=== PATIENT | female | born 1970 | race African-American/Black ===

== ENCOUNTER 2017-03-18 11:36 | Emergency (ER) | payer MEDICAID ==
[~2017-03-18] VITALS: Ht 162.6 cm; Wt 63.0 kg
[~2017-03-18 11:36] MED LIST: ALBU2.5V13 IH; ASPI-1159 PO
[2017-03-18] MEDS ORDERED: SODIUM CHLORIDE 0.9% 1,000 ML IV ONE (15:52)
[2017-03-18] MEDS ORDERED: KETOROLAC 30MG/ML VIAL IV STA (15:52)
[2017-03-18 16:17] VITALS: BP 121/74
[2017-03-18 16:17] LABS: CHLORIDE 110 mEq/L (98-107); EOSINOPHILS % 6.1 % (0.0-5.0); HEMATOCRIT. 33.7 % (36.0-48.0); HEMOGLOBIN. 11.1 g/dL (12.0-16.0); LYMPHOCYTES % 34.3 % (20.0-50.0); MEAN CORPUSCULAR VOLUME 90.9 fL (81.0-99.0); MEAN PLATELET VOLUME 8.1 fl (7.4-10.4); MONOCYTES % 10.2 % (2.0-8.0); NEUTROPHILS % 48.4 % (40.0-76.0); PLATELET 298 x1000/uL (130-400); RED BLOOD CELL COUNT 3.71 mill/uL (4.2-5.4); RED CELL DISTRIBUTION WIDTH 16.6 % (11.6-14.6)
[2017-03-18 16:29] LABS: INR 1.1; PROTHROMBIN TIME 11.1 sec (9.4-11.6)
[2017-03-18 16:30] LABS: HCG SCREEN NEGATIVE
[2017-03-18 17:19] LABS: CLARITY URINE CLOUDY (CLEAR); COLOR URINE YELLOW (YELLOW); KETONES URINE NEGATIVE (NEGATIVE); LEUKOCYTE ESTERASE URINE 2+ (NEGATIVE); NITRITE URINE NEGATIVE (NEGATIVE); OCCULT BLOOD URINE NEGATIVE (NEGATIVE); PH URINE 5.5 (4.5-8.0); PROTEIN URINE NEGATIVE (NEGATIVE); SPECIFIC GRAVITY URINE 1.024 (1.005-1.030); UROBILINOGEN URINE 0.2 E.U./dL (0.2-1.0)
== END 2017-03-18 19:20 | disposition home or self-care (01) ==
LOC: ER 12:17
DX: N20.0 Calculus of kidney (principal); N39.0 Urinary tract infection, site not specified; F12.10 Cannabis abuse, uncomplicated; Z79.82 Long term (current) use of aspirin; Z87.442 Personal history of urinary calculi; Z98.51 Tubal ligation status; Z91.041 Radiographic dye allergy status
CPT/HCPCS: 36415; 74176; 80053; 81001; 83690; 84703; 85025; 85610; 96361; 96374; 99285; J1885; J7030

== ENCOUNTER 2017-03-28 18:19 | Emergency (ER) | payer MEDICAID ==
[~2017-03-28] VITALS: Ht 162.6 cm; Wt 63.0 kg
[2017-03-28] MEDS ORDERED: FLUORESCEIN SODIUM 1MG/STRIP RIGHTEYE ONE (20:00)
[2017-03-28] MEDS ORDERED: TETRACAINE 0.5% OPHTH DROPS 4ML RIGHTEYE ONE (20:00)
[2017-03-28] MEDS ORDERED: IBUPROFEN 600MG TABLET PO ONE (20:30)
[2017-03-28 20:32] VITALS: BP 135/76
== END 2017-03-28 20:48 | disposition home or self-care (01) ==
LOC: ER 18:58
DX: H11.31 Conjunctival hemorrhage, right eye (principal); Z87.442 Personal history of urinary calculi; Z85.9 Personal history of malignant neoplasm, unspecified; Z79.82 Long term (current) use of aspirin; Z91.041 Radiographic dye allergy status
CPT/HCPCS: 99284

== ENCOUNTER 2017-04-25 19:33 | Emergency (ER) | payer MEDICAID ==
[~2017-04-25] VITALS: Ht 162.6 cm; Wt 63.0 kg
[2017-04-25] MEDS ORDERED: ONDANSETRON HCL 4MG/2ML VIAL IV STA (20:57)
[2017-04-25] MEDS ORDERED: KETOROLAC 30MG/ML VIAL IV STA (20:57)
[2017-04-25] MEDS ORDERED: IPRATROPIUM/ALBUTEROL 0.5-3(2.5)MG/3ML NEB HHN ONE (21:00)
[2017-04-25 21:18] LABS: BASOPHILS % 1.1 % (0.0-2.0); HEMATOCRIT. 33.2 % (36.0-48.0); HEMOGLOBIN. 10.9 g/dL (12.0-16.0); LYMPHOCYTES % 41.1 % (20.0-50.0); MEAN CORPUSCULAR HEMOGLOBIN 29.3 pg (28.0-32.0); MEAN CORPUSCULAR VOLUME 89.4 fL (81.0-99.0); MEAN PLATELET VOLUME 8.5 fl (7.4-10.4); MONOCYTES % 8.5 % (2.0-8.0); NEUTROPHILS % 44.3 % (40.0-76.0); PLATELET 267 x1000/uL (130-400); RED BLOOD CELL COUNT 3.72 mill/uL (4.2-5.4); RED CELL DISTRIBUTION WIDTH 17.8 % (11.6-14.6)
[2017-04-25 21:25] LABS: CHLORIDE 106 mEq/L (98-107)
[2017-04-25 21:29] LABS: HCG SCREEN NEGATIVE
[2017-04-25 21:32] LABS: TROPONIN I < 0.02 ng/mL (0.00-0.04)
[2017-04-25 21:41] LABS: D-DIMER < 0.19 mg/L FEU (<0.50); INR 1.1; PARTIAL THROMBOPLASTIN TIME 26.4 sec (23.4-31.0)
[2017-04-25] MEDS ORDERED: ACETAMINOPHEN 325MG TABLET PO ONE (22:45)
[2017-04-25] MEDS ORDERED: PREDNISONE 20MG TABLET PO ONE (22:45)
[2017-04-26 00:54] VITALS: BP 111/62
== END 2017-04-26 01:00 | disposition home or self-care (01) ==
LOC: ER 19:33
DX: R07.89 Other chest pain (principal); D64.9 Anemia, unspecified; F17.200 Nicotine dependence, unspecified, uncomplicated; F12.10 Cannabis abuse, uncomplicated; Z91.041 Radiographic dye allergy status
CPT/HCPCS: 36415; 71045; 80053; 83690; 83880; 84443; 84484; 84703; 85025; 85379; 85610; 85730; 93005; 94640; 96374; 96375; 99285; J1885; J2405; J7512; J7620

== ENCOUNTER 2017-06-30 19:51 | Emergency (ER) | payer MEDICAID ==
[~2017-06-30] VITALS: Ht 162.6 cm; Wt 64.0 kg
[2017-06-30] MEDS ORDERED: SODIUM CHLORIDE 0.9% 1,000 ML IV ONE (20:51)
[2017-06-30 21:41] LABS: BASOPHILS % 1.4 % (0.0-2.0); CHLORIDE 111 mEq/L (98-107); EOSINOPHILS % 4.8 % (0.0-5.0); HEMATOCRIT. 34.8 % (36.0-48.0); HEMOGLOBIN. 11.4 g/dL (12.0-16.0); LYMPHOCYTES % 45.2 % (20.0-50.0); MEAN CORPUSCULAR HEMOGLOBIN 30.3 pg (28.0-32.0); MEAN CORPUSCULAR VOLUME 92.4 fL (81.0-99.0); MEAN PLATELET VOLUME 8.4 fl (7.4-10.4); MONOCYTES % 8.5 % (2.0-8.0); NEUTROPHILS % 40.1 % (40.0-76.0); PLATELET 243 x1000/uL (130-400); RED BLOOD CELL COUNT 3.77 mill/uL (4.2-5.4); RED CELL DISTRIBUTION WIDTH 18.4 % (11.6-14.6)
[2017-06-30 21:42] LABS: CLARITY URINE CLOUDY (CLEAR); COLOR URINE YELLOW (YELLOW); KETONES URINE NEGATIVE (NEGATIVE); LEUKOCYTE ESTERASE URINE 1+ (NEGATIVE); NITRITE URINE NEGATIVE (NEGATIVE); OCCULT BLOOD URINE NEGATIVE (NEGATIVE); PH URINE 6.5 (4.5-8.0); PROTEIN URINE NEGATIVE (NEGATIVE); SPECIFIC GRAVITY URINE 1.023 (1.005-1.030); UROBILINOGEN URINE 0.2 E.U./dL (0.2-1.0)
[2017-06-30 21:45] LABS: ETHANOL BLOOD < 10 mg/dL; INR 1.1
[2017-06-30 21:47] LABS: HCG SCREEN NEGATIVE
[2017-06-30 21:55] LABS: *AMPHETAMINES SCREEN URINE NEGATIVE (NEGATIVE); *BARBITURATES SCREEN URINE NEGATIVE (NEGATIVE); *COCAINE SCREEN URINE NEGATIVE (NEGATIVE)
[2017-06-30 21:56] LABS: *BENZODIAZEPINES SCREEN URINE NEGATIVE (NEGATIVE); METHADONE URINE SCREEN NEGATIVE (NEGATIVE); OPIATES URINE SCREEN NEGATIVE (NEGATIVE); PHENCYCLIDINE URINE SCREEN NEGATIVE (NEGATIVE)
[2017-06-30 21:59] LABS: CANNABINOID URINE SCREEN PRESUMTIVE POSITIVE (NEGATIVE)
[2017-06-30] MEDS ORDERED: KETOROLAC 30MG/ML VIAL IV STA (22:13)
[2017-06-30] MEDS ORDERED: CEFTRIAXONE 1 G PREMIX 50 ML IV ONE (22:15)
[2017-07-01 00:47] VITALS: BP 125/81
== END 2017-07-01 00:49 | disposition home or self-care (01) ==
LOC: ER 20:36
DX: N39.0 Urinary tract infection, site not specified (principal); F12.10 Cannabis abuse, uncomplicated; Z87.442 Personal history of urinary calculi; Z79.82 Long term (current) use of aspirin; Z91.013 Allergy to seafood; Z91.041 Radiographic dye allergy status; Z98.890 Other specified postprocedural states
CPT/HCPCS: 36415; 74176; 80053; 80305; 81003; 83690; 84703; 85025; 85610; 96361; 96365; 96375; 99285; G0482; J0696; J1885; J7030; Z7610

== ENCOUNTER 2017-09-27 07:35 | Emergency (ER) | payer MEDICAID ==
[~2017-09-27] VITALS: Ht 162.6 cm; Wt 64.0 kg
[2017-09-27] MEDS ORDERED: KETOROLAC 30MG/ML VIAL IV ONE (09:45)
[2017-09-27 18:30] VITALS: BP 127/88
== END 2017-09-27 18:28 | disposition home or self-care (01) ==
LOC: ER 08:26
DX: R07.89 Other chest pain (principal)
CPT/HCPCS: 36415; 71045; 84484; 93005; 96374; 99285; J1885

== ENCOUNTER 2018-02-02 17:57 | Emergency (ER) | payer MEDICAID ==
[~2018-02-02] VITALS: Ht 162.6 cm; Wt 66.0 kg
[2018-02-02] MEDS ORDERED: SODIUM CHLORIDE 0.9% 1,000 ML IV ONE (19:35)
[2018-02-02] MEDS ORDERED: KETOROLAC 30MG/ML VIAL IV STA (19:35)
[2018-02-02] MEDS ORDERED: ONDANSETRON HCL 4MG/2ML INJ IV STA (19:35)
[2018-02-02 20:34] LABS: CLARITY URINE CLOUDY (CLEAR); COLOR URINE YELLOW (YELLOW); KETONES URINE NEGATIVE (NEGATIVE); LEUKOCYTE ESTERASE URINE TRACE (NEGATIVE); NITRITE URINE NEGATIVE (NEGATIVE); OCCULT BLOOD URINE NEGATIVE (NEGATIVE); PH URINE 6.5 (4.5-8.0); PROTEIN URINE NEGATIVE (NEGATIVE); SPECIFIC GRAVITY URINE 1.019 (1.005-1.030); UROBILINOGEN URINE 0.2 E.U./dL (0.2-1.0)
[2018-02-02 21:34] LABS: BASOPHILS % 0.9 % (0.0-2.0); EOSINOPHILS % 7.7 % (0.0-5.0); HEMATOCRIT. 34.3 % (36.0-48.0); HEMOGLOBIN. 11.5 g/dL (12.0-16.0); LYMPHOCYTES % 43.7 % (20.0-50.0); MEAN CORPUSCULAR HEMOGLOBIN 32.8 pg (28.0-32.0); MEAN CORPUSCULAR VOLUME 97.5 fL (81.0-99.0); MEAN PLATELET VOLUME 9.4 fl (7.4-10.4); MONOCYTES % 8.1 % (2.0-8.0); NEUTROPHILS % 39.6 % (40.0-76.0); PLATELET 181 x1000/uL (130-400); RED BLOOD CELL COUNT 3.52 mill/uL (4.2-5.4); RED CELL DISTRIBUTION WIDTH 14.2 % (11.6-14.6)
[2018-02-02 21:37] LABS: CHLORIDE 111 mEq/L (98-107)
[2018-02-03 00:41] VITALS: BP 118/70
== END 2018-02-03 00:41 | disposition home or self-care (01) ==
LOC: ER 17:57
DX: N20.0 Calculus of kidney (principal); N39.0 Urinary tract infection, site not specified; J45.909 Unspecified asthma, uncomplicated; Z85.41 Personal history of malignant neoplasm of cervix uteri; Z91.041 Radiographic dye allergy status; Z91.013 Allergy to seafood; Z98.890 Other specified postprocedural states
CPT/HCPCS: 36415; 74176; 80053; 81003; 83605; 85025; 96361; 96374; 96375; 99284; J1885; J2405; J7030

== ENCOUNTER 2018-06-04 08:05 | Emergency (ER) | payer MEDICAID ==
[~2018-06-04] VITALS: Ht 162.6 cm; Wt 68.1 kg
[2018-06-04] MEDS ORDERED: amoxicillin (08:20)
[2018-06-04] MEDS ORDERED: DOCU-286 PO (08:20)
[2018-06-04] MEDS ORDERED: propranolol (08:20)
[2018-06-04] MEDS ORDERED: IBUP-2030 PO (08:20)
[2018-06-04] MEDS ORDERED: FERR-71 PO (08:20)
[2018-06-04] MEDS ORDERED: FLUORESCEIN SODIUM 1MG/STRIP LEFTEYE ONE (09:00)
[2018-06-04] MEDS ORDERED: IBUPROFEN 600MG TABLET PO ONE (09:30)
[2018-06-04 09:54] VITALS: BP 137/89
== END 2018-06-04 09:52 | disposition home or self-care (01) ==
LOC: ER 08:05
DX: H57.12 Ocular pain, left eye (principal); J45.909 Unspecified asthma, uncomplicated; F12.10 Cannabis abuse, uncomplicated; R01.1 Cardiac murmur, unspecified; Z87.442 Personal history of urinary calculi; Z85.41 Personal history of malignant neoplasm of cervix uteri; Z91.041 Radiographic dye allergy status; Z91.013 Allergy to seafood; Z98.890 Other specified postprocedural states
CPT/HCPCS: 99283

== ENCOUNTER 2019-11-08 06:15 | Emergency (ER) | payer MEDICAID ==
[~2019-11-08] VITALS: Ht 157.5 cm; Wt 68.0 kg
[~2019-11-08 06:15] MED LIST changes: -ASPI-1159 PO; +DOCU-286 PO; +FERR-71 PO; +IBUP-2030 PO; +amoxicillin; +propranolol
[2019-11-08 06:35] VITALS: BP 123/91
== END 2019-11-08 07:25 | disposition home or self-care (01) ==
LOC: ER 06:21
DX: I10 Essential (primary) hypertension (principal); J45.909 Unspecified asthma, uncomplicated; F12.10 Cannabis abuse, uncomplicated; D64.9 Anemia, unspecified; Z87.442 Personal history of urinary calculi; Z98.890 Other specified postprocedural states; Z91.041 Radiographic dye allergy status; Z91.013 Allergy to seafood
CPT/HCPCS: 99281

== ENCOUNTER 2020-06-20 08:02 | Emergency (ER) | payer MEDICAID ==
[~2020-06-20] VITALS: Ht 162.6 cm; Wt 68.0 kg
[2020-06-20] MEDS ORDERED: HYDROCODONE/ACETAMINOPHEN 5/325MG TABLET PO STA (08:35)
[2020-06-20 09:07] LABS: BASOPHILS % 1.2 % (0.0-2.0); EOSINOPHILS % 4.8 % (0.0-5.0); HEMATOCRIT. 37.2 % (36.0-48.0); HEMOGLOBIN. 12.3 g/dL (12.0-16.0); LYMPHOCYTES % 31.5 % (20.0-50.0); MEAN CORPUSCULAR HEMOGLOBIN 30.6 pg (28.0-32.0); MEAN CORPUSCULAR VOLUME 92.7 fL (81.0-99.0); MEAN PLATELET VOLUME 9.5 fl (7.4-10.4); MONOCYTES % 9.3 % (2.0-8.0); NEUTROPHILS % 53.2 % (40.0-76.0); PLATELET 233 x1000/uL (130-400); RED BLOOD CELL COUNT 4.01 mill/uL (4.2-5.4); RED CELL DISTRIBUTION WIDTH 15.3 % (11.6-14.6)
[2020-06-20 09:10] LABS: CHLORIDE 111 mEq/L (98-107)
[2020-06-20 14:59] VITALS: BP 143/98
== END 2020-06-20 15:29 | disposition home or self-care (01) ==
LOC: ER 08:02
DX: R07.89 Other chest pain (principal); I10 Essential (primary) hypertension; F12.10 Cannabis abuse, uncomplicated; Z98.51 Tubal ligation status; Z91.041 Radiographic dye allergy status; Z91.013 Allergy to seafood; Z98.890 Other specified postprocedural states
CPT/HCPCS: 36415; 71045; 80053; 83880; 84484; 85025; 85379; 93005; 99285

== ENCOUNTER 2022-04-12 18:44 | Emergency (ER) | payer MEDICAID ==
[~2022-04-12] VITALS: Ht 162.6 cm; Wt 75.0 kg
[2022-04-12] MEDS ORDERED: IPRATROPIUM/ALBUTEROL 0.5-3(2.5)MG/3ML NEB HHN ONE (22:15)
[2022-04-12] MEDS ORDERED: PREDNISONE 20MG TABLET PO ONE (22:15)
[2022-04-12] MEDS ORDERED: AZIT250T12 MT (23:47)
[2022-04-12] MEDS ORDERED: ALBU05 NEB (23:51)
[2022-04-12] MEDS ORDERED: ATROV INH (23:55)
[2022-04-12] MEDS ORDERED: P50 MT (23:57)
[2022-04-13] VITALS: BP 133/75
[2022-04-13] MEDS ORDERED: ALBU6.7H3 INH (08:25)
[2022-04-13] MEDS ORDERED: AZIT250T12 MT (08:25)
[2022-04-13] MEDS ORDERED: P50 MT (08:26)
== END 2022-04-13 00:55 | disposition home or self-care (01) ==
LOC: ER 18:44
DX: J45.31 Mild persistent asthma with (acute) exacerbation (principal); B34.9 Viral infection, unspecified
CPT/HCPCS: 94640; 99283; J7512; Z7610